=== PATIENT | female | born 1980 | race Two or more races ===

== ENCOUNTER → 2024-04-28 | Outpatient (CLI) | payer MEDICAID, SELFPAY ==
--- NOTE | 2024-04-28 | XR_ITS ---
Examination: Diagnostic digital mammography, bilateral Computer aided detection 3-D breast Tomosynthesis, bilateral Date and time of exam: April 28, 2024 at 1500 hours Comparison August 23, 2022 INDICATIONS: Patient feels left breast lump one year upper left breast Technique: Nonmagnified MLO, CC views of the breasts to been obtained, reconstructed from 3-D Tomosynthesis images. R2 computer aided detection program utilized for evaluation of suspicious masses and/or abnormal calcifications. 3-D Tomosynthesis images obtained. Findings: The breasts are extremely dense, which limits the sensitivity of mammography No suspicious masses noted including on the spot compression left breast views Left breast sonogram today demonstrates benign cysts no solid nodules Impression: BI-RADS Category 2: Benign findings Recommend yearly follow-up mammography Recommend repeat left breast sonography in 6 months if palpable left breast lump persists.
--- NOTE | 2024-04-28 14:30 | XR_ITS ---
Examination: Breast ultrasound, unilateral, left complete Date and time of exam: April 28, 2024 1436 hours INDICATIONS: Breast pain beginning 3 months ago on the left Technique: Real-time saavedra scale ultrasonographic imaging performed left breast including all 4 quadrants as well as nipple retroareolar and axillary region. Findings: 2:00 cyst 12 x 11 mm 3:00 cyst 12 x 9 mm Retroareolar cyst 14 x 14 mm Additional smaller cysts IMPRESSION: BI-RADS Category 2: Benign findings
== END | disposition home or self-care (01) ==
LOC: CDIM 14:23
PROVIDERS: Referring Provider Family Medicine; Visit Provider Family Medicine
DX: R92.323 Mammographic fibroglandular density, bilateral breasts (principal); N60.02 Solitary cyst of left breast
CPT/HCPCS: 76641; 77062; 77066; G0279

== ENCOUNTER 2024-06-14 13:22 | Emergency (ER) | payer MEDICAID, SELFPAY ==
--- NOTE | 2024-06-14 13:36 | EKG_ITS ---
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
--- NOTE | 2024-06-14 13:36 | XR_ITS ---
Examination: CT brain head without contrast. 2-D sagittal coronal reconstructions Date and time of exam:June 14, 2024 1459 hours INDICATIONS: Dizziness episodes beginning 3 hours ago CTDI: vol (mGy):44.9 DLP: (mGycm):864 Technique: Multiple CT axial sections of the brain have been obtained, 5 mm slice thickness. Contrast has not been administered. 2-D sagittal, coronal reconstructions have been obtained Low dose protocols were performed. One or more of the following dose reduction techniques were used; automated exposure control, adjustment of the mA and/or KV according to patient size, use of iterative reconstruction technique. Findings: No significant ventricular enlargement. Intra-axial or extra-axial hemorrhage density is not seen. No mass effect or midline shift Basal cisterns are not remarkable. Fourth ventricle is midline. Cranial vault intact. Acute right maxillary sinusitis Impression: Negative for acute hemorrhage, mass effect or midline shift Advise clinical correlation and follow-up accordingly
[2024-06-14 13:37] VITALS: BP 123/75; PULSE 90; RESP 18; TEMP 37.1; O2SAT 95; BMI 18.8
--- NOTE | 2024-06-14 13:37 | PD.EDRME ---
Rapid Medical Screening Exam RME Arrival date/time: 06/14/24 13:22 43-year-old female presents emergency department complains of dizziness which began today Chief Complaint: Dizziness
[2024-06-14] MEDS: MECLIZINE HCL 25 MG TABLET 50 MG PO (13:41)
[2024-06-14 14:05] LABS: Basophils % (Auto) 0 % (0-2.5); Eosinophils % (Auto) 0 % (0-10); Hematocrit 42.7 % (36.0-46.0); Hemoglobin 15.1 g/dL (12.0-16.0); Immature Granulocytes % (Auto) 0 % (0-0); Immature Granulocytes Auto 0.04 Thou/mm3 (0.00-0.00); Lymphocytes # (Auto) 1.5 Thou/mm3 (1.0-4.8); Lymphocytes % (Auto) 15 % (10-50); Mean Corpuscular HGB Conc 35.4 g/dl (31.0-37.0); Mean Corpuscular Volume 88 fL (80-100); Monocytes # (Auto) 0.6 Thou/mm3 (0.0-0.8); Monocytes % (Auto) 6 % (0-12); Neutrophils # (Auto) 7.9 Thou/mm3 (1.8-7.7); Neutrophils % (Auto) 78 % (37-80); Nucleated Red Blood Cell % 0 /100 WBC (0); Platelet Count 268 Thou/mm3 (140-440); RDW Standard Deviation 38.6 fL (36.4-46.3); Red Blood Count 4.87 Miln/mm3 (4.00-5.20); White Blood Count 10.2 Thou/mm3 (3.6-11.0)
[2024-06-14 14:11] LABS: INR 1.1 (0.9-1.3); Partial Thromboplastin Time 24.8 Seconds (22.0-36.0); Prothrombin Time 11.5 Seconds (9.0-12.2)
[2024-06-14 14:17] LABS: Collection Type, Urine Clean Catch
[2024-06-14 14:24] LABS: B-Type Natriuretic Peptide 36 pg/mL (0-100)
[2024-06-14 14:25] LABS: Alanine Aminotransferase 9 U/L (10-49); Albumin, Serum 4.8 gm/dL (3.5-5.0); Albumin/Globulin Ratio 1.6 (1.2-2.2); Alkaline Phosphatase 64 U/L (46-116); Anion Gap 10 (7-16); Aspartate Amino Transferase 22 U/L (0-34); BUN/Creatinine Ratio 17 Ratio (12-20); Bilirubin,Total 1.5 mg/dL (0.3-1.2); Blood Urea Nitrogen 12 mg/dL (9-23); Calcium 9.8 mg/dL (8.3-10.6); Calcium (Corrected) 9.8 mg/dL (8.5-10.1); Carbon Dioxide 23.4 mMol/L (20.0-31.0); Chloride 108 mMol/L (98-107); Creatinine (Component) 0.7 mg/dL (0.6-1.3); Estimated Creatinine Clearance 79.9 mL/min (>60); Glucose 100 mg/dL (74-106); Magnesium 1.8 mg/dL (1.6-2.6); Osmolality,Calculated 280 (275-295); Potassium 3.6 mMol/L (3.4-5.1); Sodium 141 mMol/L (136-145); Total Protein 7.8 gm/dL (5.7-8.2); Troponin I < 0.020 ng/mL (0.0-0.045); eGFR > 60 See Note
[2024-06-14 14:34] LABS: HCG Qualitative,Urine Negative
[2024-06-14 14:54] LABS: Bilirubin,Urine Negative (Negative); Blood,Urine Negative (Negative); Clarity,Urine Clear (Clear/Hazy); Color,Urine Lt-Yellow (Lt Yel-Yel); Glucose, Urine Negative (Negative); Ketones,Urine Trace (Negative); Leukocyte Esterase,Urine Negative (Negative); Nitrite,Urine Negative (Negative); PH,Urine 6.5 (5.0-7.0); Protein,Urine Negative (Neg - Trace); RBC,Urine 1 /hpf (0-3); Specific Gravity,Urine 1.008 (1.001-1.035); Squamous Epithelial Cell,Urine 5 /hpf (0-5); Urobilinogen,Urine Negative mg/dL (0.0-1.0); WBC,Urine 1 /hpf (0-5)
[2024-06-14 14:55] LABS: Amphetamine/Methamp Scrn,U Negative (Negative); Barbiturate Screen,Urine Negative (Negative); Benzodiazepines Screen,Urine Negative (Negative); Benzoylecgonine Screen, Ur Negative (Negative); Fentanyl Screen,Urine Negative (Negative); Opiate Screen,Urine Negative (Negative); THC Screen,Urine Negative (Negative)
[2024-06-14 15:51] LABS: Sperm,Urine Present
[2024-06-14 16:01] VITALS: BP 124/72; PULSE 75; RESP 19; TEMP 37; O2SAT 99
--- NOTE | 2024-06-14 16:19 | PD.EDDIZZY ---
ED Dizzyness RME/HPI General Chief Complaint: Dizziness Stated Complaint: Dizzy, weak X 2 hours Time Seen by Provider: 06/14/24 16:08 Source: patient Arrival date/time: 06/14/24 13:22 43-year-old female with no known medical history presents to the emergency room with a chief complaint of dizziness and weakness x 2 hours. Mode of arrival: ambulatory Limitations: no limitations RME / HPI RME / HPI Narrative: 06/14/24 13:22 43-year-old female presents emergency department complains of dizziness which began today Related Data Home Medications ?Medication ?Instructions ?Recorded ?Confirmed clonazepam 2 mg tablet 0.5 mg PO QDAY 03/26/20 03/26/20 pantoprazole 40 mg tablet,delayed 40 mg PO QDAY 03/26/20 03/26/20 release Previous Rx's ?Medication ?Instructions ?Recorded meclizine 25 mg tablet 25 mg PO BID PRN dizziness #14 tabs 06/14/24 Allergies Allergy/AdvReac Type Severity Reaction Status Date / Time omeprazole Allergy Intermediate RASH, Verified 03/26/20 09:55 ITCHING Past Medical History Past Medical History NEUROLOGIC: Negative Neurological Disorders or Seizures CARDIAC: Negative Cardiac Disorders or Congestive Heart Failure RESPIRATORY: Negative Chronic Obstructive Pulmonary Disease (COPD) GASTROINTESTINAL: Positive Gastrointestinal Disorders (GASTRITIS, H. PYLORI) GENITOURINARY: Negative Genitourinary Disorders or Renal Disease REPRODUCTIVE: Negative Pelvic Inflammatory Disease MUSCULOSKELETAL: Negative Musculoskeletal Disorders ENDOCRINE: Negative Endocrine Disorders, Diabetes Mellitus Type 1 or Diabetes Mellitus Type 2 HEMATOLOGIC: Negative Blood Disorders OTHER HISTORY: Negative Autoimmune Disease, Blood Transfusions, Blood Transfusion Reaction, Anesthesia Reactions, MRSA, Clostridium Difficile or Cancer Family History FAMILY HISTORY: Positive Family Cardiac Disorders (Father with hypertension and high cholesterol) Surgical History SURGICAL: Negative Ear Surgery, Abdominal Surgery, Nephrectomy or Joint Replacement Social History SMOKING STATUS: Never smoker ED Exam General Limitations: Present no limitations General appearance: Present alert and in no apparent distress Head Head exam: Present atraumatic, normocephalic and normal inspection Eye Eye exam: Present normal appearance, PERRL and EOMI ENT ENT exam: Present normal exam, normal oropharynx and mucous membranes moist Neck Neck exam: Present normal inspection, full ROM and trachea midline Chest Chest inspection: Present normal inspection and symmetric chest wall rise Respiratory Respiratory exam: Present normal lung sounds bilaterally Cardiovascular Cardiovascular exam: Present regular rate, normal rhythm and normal heart sounds Abdominal Exam Abdominal exam: Present soft and normal bowel sounds Extremities Exam Extremities exam: Present normal inspection and full ROM Back Exam Back exam: Present normal inspection and full ROM Neurological Exam Neurological exam: Present alert, oriented X3, CN II-XII intact, normal gait and reflexes normal Expanded Neurological Exam Patient oriented to: Present person, place and time Speech: Present fluid speech Cranial nerves: Normal: EOM function (II, III, IV, ), facial sensation (V) and facial palsy (VII) Cerebellar function: Normal: finger to nose Cerebellar function: Present normal gait Motor strength - LUE: 5/5 Motor strength - RUE: 5/5 Motor strength - LLE: 5/5 Motor strength - RLE: 5/5 Coma scale eye opening: spontaneous Coma scale motor response: obeys commands Coma scale verbal response: oriented Coma scale total: 15 Psychiatric Psychiatric exam: Present normal affect and normal mood Skin Skin exam: Present warm, dry, intact and normal color Course Quality Measures none Orders Category Date Time Status EKG (ED ONLY) *Do not use* NOW Care 06/14/24 13:[address] head/brain wo con Stat Exams 06/14/24 13:36 Completed EKG (ED Only) Stat Exams 06/14/24 13:36 Draft B-Type Natriuretic Peptide Stat Lab 06/14/24 11:49 Completed CBC Stat Lab 06/14/24 11:49 Completed Comprehensive Metabolic Panel Stat Lab 06/14/24 11:49 Completed Drug Screen,Urine Stat Lab 06/14/24 14:08 Completed HCG Qualitative,Urine Stat Lab 06/14/24 14:08 Completed Magnesium Stat Lab 06/14/24 11:49 Completed Partial Thromboplastin Time Stat Lab 06/14/24 11:49 Completed Prothrombin Time with INR Stat Lab 06/14/24 11:49 Completed Troponin I Stat Lab 06/14/24 11:49 Completed Urinalysis Stat Lab 06/14/24 14:08 Completed Meclizine HCl [Antivert] Med 06/14/24 13:36 Discontinued 50 mg PO X1 ONE Vital Signs Vital signs: Vital Signs Temperature 98.7 F 06/14/24 13:37 Pulse Rate 90 06/14/24 13:37 Respiratory Rate 18 06/14/24 13:37 Blood Pressure 123/75 06/14/24 13:37 Pulse Oximetry (%) 95 06/14/24 13:37 Oxygen Delivery Method Room Air 06/14/24 13:37 O2 saturation 95% within normal limits Procedures -ED EKG Interpretation #1: Date of EK06/14/24 Rate: 82 Interpretation: Reviewed by me EKG Impression: Normal sinus rhythm Additional EKG comment: EKG shows normal sinus rhythm at [address] deviation Dizziness MDM Narrative MDM Narrative:: 43-year-old female with no known medical history presents to the emergency room with a chief complaint of dizziness and weakness x 2 hours. The patient is hemodynamically stable and in no apparent distress. Neurological examination is within normal limits. Pupils are PERRLA EOMs are intact the patient is a GCS of 15 alert and oriented x 4. Patient was positive for the Hallpike maneuver. Patient states she is having dizziness with sudden movement changes. Patient was given medication and reevaluated with significant improvement to her symptoms. EKG shows normal sinus rhythm at [address] deviation or any arrhythmias. CT of the head and brain was completed and was negative for any acute findings Patient was discharged and educated to follow-up with her primary care provider and return to the emergency room for any evidence of worsening signs or symptoms Patient data External records [place] [facility] [place] Clinical information provided by:: patient Social determinants that could affect healthcare access:: none Patient has the following chronic illnesses:: No chronic illness How is presenting disease/condition affected by chronic disease/condition?: no chronic disease Evaluation data The following diagnostics were reviewed and interpreted by me:: lab results and radiology exam(s) Lab and/or radiology exams considered but not ordered:: Labs and radiology exams considered and ordered Interpretation Summary: CT of the head and brain-Findings: No significant ventricular enlargement. Intra-axial or extra-axial hemorrhage density is not seen. No mass effect or midline shift Basal cisterns are not remarkable. Fourth ventricle is midline. Cranial vault intact. Acute right maxillary sinusitis Impression: Negative for acute hemorrhage, mass effect or midline shift Advise clinical correlation and follow-up accordingly Medications / Prescriptions Medications or Prescriptions considered but not ordered:: Medication given Medication administrations:: Medication Administration History Discontinued Medications Meclizine HCl (Meclizine Hcl 25 Mg Tablet) 50 mg PO X1 ONE Stop: 06/14/24 13:37 Last Admin: 06/14/24 13:41 Dose: 50 mg Documented By: OA Medication given Consultations Consultation(s) initiated? (list below): No Diagnosis Dizziness Differential Diagnosis: adverse reaction to drug, benign paroxysmal positional vertigo, orthostatic hypotension, cerebrovascular accident and transient cerebral ischemia Most likely diagnosis given after review of the tests above:: Vertigo Admission Indicated Admission indicated?: not indicated Admission Request Was there a request for admission?: No Disposition Plan Disposition Plan: Discharge Discharge Attestation Discharge Attestation: The patient and all family members were given an opportunity to ask questions and understood the discharge instructions. Discharge instructions specifically effects, indications for sooner follow up or return to the emergency department, and the expected course of current diagnosis. Patient condition: Stable Discharge Plan Plan Patient Disposition: HOME (Self Care) Disposition Comment: Stable Prescriptions/Referrals Prescriptions/Med Rec: New meclizine 25 mg tablet 25 mg PO BID PRN (Reason: dizziness) Qty: 14 0RF No Action pantoprazole 40 mg Tablet,Delayed Release (Dr/Ec) 40 mg PO QDAY clonazepam 2 mg Tablet 0.5 mg PO QDAY Referrals: Jose Durand MD [Primary Care Provider] - In 1 week Problem List Clinical Impression: Benign paroxysmal positional vertigo Patient/Caregiver Discharge Instructions Education Materials: ED BPV Vertigo Additional Instructions: Please follow-up with your primary care provider in the next 24 to 48 hours. Medication was sent to your pharmacy to help you with your dizziness please pick it up and take it as indicated. For any evidence of worsening signs or symptoms please return to the emergency room immediately Print Language: Maltese Stand Alone Forms: Micheline Award Info., Patient Portal Info Letter POLO/DAVID Supervising Physician POLO/DAVID Supervising Physician: Dr. Worthington
--- NOTE | 2024-06-14 16:35 | PC.SS ---
ASW met at bed side with patient as patient was requesting resources/mental health services. Provided patient with community resources. Patient expressed wanting to seek mental health services due symptoms of depression as she reported having issues in her household. Patient was agreeable to a referral at [facility]. Provided patient with agency information. ASW faxed referral to [facility] and informed them to reach out to patient via contact number for appointment date/time as patient will be discharged home from the ED. Patient aware they will reach out with appointment date.
== END 2024-06-14 16:34 | disposition home or self-care (01) ==
PROVIDERS: Nurse Practitioner Primary Care; Emergency Provider Emergency Medicine; PCP Family Medicine
DX: H81.10 Benign paroxysmal vertigo, unspecified ear (principal)
CPT/HCPCS: 36415; 70450; 80053; 80307; 81001; 81025; 83735; 83880; 84484; 85025; 85610; 85730; 93005; 99284; A9270

== ENCOUNTER → 2025-01-02 | Outpatient (CLI) | payer MEDICAID, SELFPAY ==
--- NOTE | 2025-01-02 13:00 | XR_ITS ---
MRI shoulder, right, without contrast. Date and time: January 02, 2025 1405 hours INDICATIONS: Right shoulder pain beginning May 2024 50% abduction Technique: Multiple axial, sagittal and coronal sections of the shoulder have been obtained. Siemens high-resolution 1.5 Jolly MRI scanner is utilized. Axial fat-suppressed sections, TR 2350, TE 18 T2-weighted coronal fat-saturated images, TR 3500, TE 7100 T1-weighted coronal images, TR 500, TE 15 T2-weighted sagittal fat-saturated images, TR 3500, TE 57 T1-weighted sagittal sections, TR 504, TE 13. Findings: Supraspinatus tendon insertion is intact. Infraspinatus tendon insertion is intact. Subscapularis insertion is intact. Subscapularis bursa is evident. Long head of the biceps is in the bicipital groove. No definite tear of the biceps superior labral anchor is seen. Retraction of the musculotendinous junction of the rotator cuff is not seen . Tendinosis pattern is moderate. Distance between the acromium and humeral head is 6.4 mm Atrophy of the supraspinatus muscle is mild . Atrophy of the infraspinatus muscle is not seen. Sagittal sections demonstrate a horizontal acromion. Acromioclavicular joint demonstrates mild osteoarthritis . Osacromiale is not identified. No labral tear. Bony glenoid fossa on the sagittal sections does not demonstrate osseous defect. Occult fracture or area of avascular necrosis is not seen. Acromioclavicular joint separation is not visible. Defect in the posterolateral margin of the humeral head is not seen Impression: Moderate rotator cuff tendinosis.
== END | disposition home or self-care (01) ==
PROVIDERS: PCP Family Medicine; Referring Provider Family Medicine; Visit Provider Family Medicine
DX: M67.813 Other specified disorders of tendon, right shoulder (principal)
CPT/HCPCS: 73221

== ENCOUNTER 2025-05-07 20:51 | Emergency (ER) | payer MEDICAID, SELFPAY ==
[2025-05-07 21:02] VITALS: BP 151/96; PULSE 97; RESP 19; TEMP 37.2; O2SAT 98; BMI 25.2
--- NOTE | 2025-05-07 21:19 | PD.EDHAND ---
Upper Extremity Injury RME/HPI General Chief Complaint: Hand/Wrist Problems Stated Complaint: RIGHT HAND PAIN Time Seen by Provider: 05/07/25 21:08 Arrival date/time: 05/07/25 20:51 44-year-old female patient came in for evaluation regarding right wrist pain on the volar aspect, pain radiates to the hand this been ongoing for the last few days getting worse today. Denies any trauma denies any fall denies any redness denies any swelling denies any cyanosis of the hand. No medication was taken prior to ER visit. Related Data Home Medications ?Medication ?Instructions ?Recorded ?Confirmed clonazepam 2 mg tablet 0.5 mg PO QDAY 03/26/20 03/26/20 pantoprazole 40 mg tablet,delayed 40 mg PO QDAY 03/26/20 03/26/20 release Previous Rx's ?Medication ?Instructions ?Recorded meclizine 25 mg tablet 25 mg PO BID PRN dizziness #14 tabs 06/14/24 dexamethasone 6 mg tablet 6 mg PO QDAY #7 tabs 05/07/25 ibuprofen 800 mg tablet 800 mg PO Q8H PRN pain #30 tabs 05/07/25 Allergies Allergy/AdvReac Type Severity Reaction Status Date / Time omeprazole Allergy Intermediate RASH, Verified 05/07/25 20:52 ITCHING Review of Systems Review of Systems Narrative Review of Systems: Review of system reviewed and within normal limits except mentioned in HPI ED Exam Narrative Physical exam: VITAL SIGNS: Reviewed. GENERAL APPEARANCE: Alert and interactive, follows commands, no acute distress, HEAD AND FACE: Non-traumatic. ENT: PERRL, pink conjunctivitis, eyelid no trauma, Mucous membrane moist. NECK: Supple, nontender, no nuchal rigidity. CHEST: No tenderness, no crepitus, no paradoxical movement, no retractions. LUNGS: Clear, well ventilated, symmetric, no rales, no wheezing, no ronchi, no stridor, good breath sounds bilaterally. HEART: Regular rate, regular rhythm, no murmur, no gallops. ABDOMEN: Soft, positive bowel sounds, nondistended, no guarding, nontender, no rebound, no masses, RECTAL: Deferred. GENITAL: Deferred. NEUROLOGICAL: Gross motor function intact sensory function intact, Appropriate for age. MUSCULOSKELETAL: low back nontender, full range of motion. EXTREMITIES: Right hand tenderness, with tenderness to the wrist, on volar aspect positive Phalen's test, with limited range of motion. Capillary refill less than 2 seconds SKIN: Color pink, dry, no rash, no lacerations, no abrasions, no contusions. LYMPHATICS: Deferred. Course Quality Measures none Orders Category Date Time Status Splint / Immobilizer STAT Care 05/07/25 21:18 Active Ketorolac Inj [Toradol Inj] Med 05/07/25 21:17 Discontinued 30 mg IM X1 ONE dexAMETHasone INJ [Decadron Inj] Med 05/07/25 21:17 Discontinued 10 mg IM X1 ONE Vital Signs Vital signs: Vital Signs Temperature 98.9 F 05/07/25 21:02 Pulse Rate 97 05/07/25 21:02 Respiratory Rate 19 05/07/25 21:02 Blood Pressure 151/96 H 05/07/25 21:02 Pulse Oximetry (%) 98 05/07/25 21:02 Oxygen Delivery Method Room Air 05/07/25 21:02 Extremity Injury MDM Narrative MDM Narrative:: 44-year-old female patient came in for evaluation regarding right wrist pain on the volar aspect, pain radiates to the hand this been ongoing for the last few days getting worse today. Denies any trauma denies any fall denies any redness denies any swelling denies any cyanosis of the hand. No medication was taken prior to ER visit. Clinically patient is having carpal tunnel syndrome. Patient right wrist was placed on the splint. Distal neurovascular status intact post splinting. Patient received Toradol and Decadron IM with significant proving of pain. Patient stable discharge home. I advised her to follow-up with PCP closely and use the splint also for the next 3 weeks and if no improvement patient is to be seen by a hand specialist. Patient agrees with the plan Patient data External records reviewed:: None Clinical information provided by:: patient Social determinants that could affect healthcare access:: none Patient has the following chronic illnesses:: None How is presenting disease/condition affected by chronic disease/condition?: uneffected by Evaluation data The following diagnostics were reviewed and interpreted by me:: other (specify) (None) Lab and/or radiology exams considered but not ordered:: None Interpretation Summary: None Medications / Prescriptions Medications or Prescriptions considered but not ordered:: None Medication administrations:: Medication Administration History Discontinued Medications Dexamethasone Sodium Phosphate (Dexamethasone Sod Phos Inj 10 Mg/Ml Vial) 10 mg IM X1 ONE Stop: 05/07/25 21:18 Last Admin: 05/07/25 22:17 Dose: 10 mg Documented By: CVL Ketorolac Tromethamine (Ketorolac Inj 30 Mg/Ml Vial) 30 mg IM X1 ONE Stop: 05/07/25 21:18 Last Admin: 05/07/25 22:21 Dose: 30 mg Documented By: CVL See above Consultations Consultation(s) initiated? (list below): No Diagnosis Upper Extremity Injury Differential Diagnosis: sprain and strain of wrist, fracture of wrist and other ( carpal tunnel syndrome) Most likely diagnosis given after review of the tests above:: Carpal tunnel syndrome Admission Indicated Admission indicated?: not indicated Admission Request Was there a request for admission?: No Disposition Plan Disposition Plan: Discharge Discharge Attestation Discharge Attestation: The patient and all family members were given an opportunity to ask questions and understood the discharge instructions. Discharge instructions specifically effects, indications for sooner follow up or return to the emergency department, and the expected course of current diagnosis. Patient condition: Stable Discharge Plan Plan Patient Disposition: HOME (Self Care) Discharge Disposition comment: stable Prescriptions/Referrals Prescriptions/Med Rec: New ibuprofen 800 mg tablet 800 mg PO Q8H PRN (Reason: pain) Qty: 30 0RF dexamethasone 6 mg tablet 6 mg PO QDAY Qty: 7 0RF No Action pantoprazole 40 mg Tablet,Delayed Release (Dr/Ec) 40 mg PO QDAY clonazepam 2 mg Tablet 0.5 mg PO QDAY meclizine 25 mg tablet 25 mg PO BID PRN (Reason: dizziness) Qty: 14 0RF Problem List Clinical Impression: Acute carpal tunnel syndrome Patient/Caregiver Discharge Instructions Discharge Activity: activity as tolerated Education Materials: ED Carpal Tunnel Syndrome Additional Instructions: Thank you for the opportunity for serving you today. You are stable for discharged . You are advised to: Follow-up with your PCP in 1 to 2 days Return to ED for worsening of symptoms Increase oral fluids Take medication as prescribed Wear your splint 22 hours a day, remove it only when you are having a shower for the next 3 weeks Print Language: Jamaican Stand Alone Forms: Micheline Award Info., Patient Portal Info Letter POLO/DAVID Supervising Physician JOSE Supervising Physician: mD Mj
[2025-05-07] MEDS: KETOROLAC INJ 30 MG/ML VIAL IM (22:21)
[2025-05-07 22:42] VITALS: RESP 16
== END 2025-05-07 22:42 | disposition home or self-care (01) ==
LOC: SERX 23:26
PROVIDERS: Emergency Provider Emergency Medicine
DX: G56.01 Carpal tunnel syndrome, right upper limb (principal)
CPT/HCPCS: 96372; 99282; J1100; J1885